=== PATIENT | female | born 1955 | race Caucasian/White ===

== ENCOUNTER 2019-10-07 16:45 | Emergency (ER) | payer BC, SELFPAY ==
[2019-10-07 16:49] VITALS: BP 144/82; PULSE 95; RESP 20; TEMP 36.3; O2SAT 97; BMI 28.1
--- NOTE | 2019-10-07 17:06 | ED_ITS ---
Entered by Giovanna Sethi, acting as scribe for Cedric Aguirre DO Oct 07, 2019 16:45 Documented by User: Yamel Rodriguez MD 10/07/19 19:42 HPI - General Adult General: Chief complaint: General Medical Stated complaint: multiple complaints Time Seen by Provider: 10/07/19 17:06 PFSH ED PFSH: Social History Smoking and tobacco status: former smoker Course Vital Signs: Vital signs: Vital Signs Temperature 97.4 F L 10/07/19 16:49 Pulse Rate 91 10/07/19 19:47 Respiratory Rate 14 10/07/19 19:47 Blood Pressure 122/74 10/07/19 19:47 Pulse Oximetry 97 10/07/19 19:47 MDM - General Adult MDM Narrative: Medical decision making narrative: Patient presents here with diarrhea after trip to [place]. CT scan and lab work here is all normal. We will start her on Augmentin as is been going on for 5 days. Will get stool cultures as well. She is stable for discharge and is to follow-up with her primary care doctor in 3 to 5 days return if worsening. Lab Data: Labs: Lab Results 10/07/19 10/07/19 10/07/19 Range/Units 17:40 17:45 17:45 WBC 11.9 H (4.0-10.0) 10^3/ uL RBC 4.78 (4.1-5.3) 10^6/u L Hgb 13.4 (11.5-15.3) g/dL Hct 41.4 (37.0-47.0) % MCV 86.6 (81-99) fL MCH 28.0 (28.0-34.0) pg MCHC 32.4 (30.0-36.0) g/dL RDW 12.2 (12.1-15.1) % Plt Count 343 (130-400) 10^3/c mm MPV 10.1 (7.4-10.4) fL Neut % (Auto) 73.9 % Lymph % (Auto) 15.7 % [place] % (Auto) 7.7 % Eos % (Auto) 1.9 % Baso % (Auto) 0.5 % Neut # (Auto) 8.8 H (1.8-7.7) 10^3/u L Lymph # (Auto) 1.9 (0.8-4.8) 10^3/u L [place] # (Auto) 0.9 (0.2-0.9) 10^3/u L Eos # (Auto) 0.2 (0.0-0.8) 10^3/u L Baso # (Auto) 0.1 (0.0-0.1) 10^3/u L Nucleated RBC % (a uto) 0 % Nucleated RBCs # 0.0 /100WBC Sodium 138 (136-145) mmol/L Potassium 3.5 (3.5-5.1) mmol/L Chloride 99 (98-107) mmol/L Carbon Dioxide 26 (22-29) mmol/L Anion Gap 16.5 (5-19) BUN 6 L (8-23) mg/dL Creatinine 0.7 (0.5-0.9) mg/dL GFR Calculation 84.8 L (90-130) mL/min Glucose 92 (65-115) mg/dL Calcium 8.9 (8.5-10.5) mg/dL Total Bilirubin 0.3 (0.15-1.2) mg/dL AST 23 (0-32) U/L ALT 21 (0-33) U/L Alkaline Phosphata se 110 H (35-105) IU/L Total Protein 7.1 (6.6-8.7) g/dL Albumin 4.2 (3.5-5.2) g/dL Globulin 2.9 (1.3-4.6) g/dL Lipase 26 (13-60) U/L Urine Color Yellow (Yellow) Urine Appearance Clear (CLEAR) Urine pH 7 (5-7) Ur Specific Gravit y 1.005 (1.005-1.030) Urine Protein Neg (Negative) Urine Glucose (UA) Norm (Normal) Urine Ketones Negative (Negative) Urine Occult Blood Neg (Negative) Urine Nitrate Negative (Negative) Urine Bilirubin Neg (NEGATIVE) Urine Urobilinogen Norm (Negative) mg/dL Ur Leukocyte Rosina ase Negative (Negative) Imaging Data^: CT Abd/Pel: Radiologist's impression: [address] [address] [address] Scan Report Signed Patient: Liliana Schuster Unit #: [id number] : 1955 Age/Sex: 64 / F ADM Date: 10/07/19 Loc: ER Room/Bed: Attending Dr: Ordering Provider/Ordering MD: Cedric Aguirre DO Date of Service: 10/07/19 Procedure(s): CT abdomen pelvis w con* [id number] Accession Number(s): [id number] Report Number: [id number] PROCEDURE INFORMATION: Exam: CT Abdomen And Pelvis With Contrast Exam date and time: 10/07/2019 5:53 PM Age: 64 years old Clinical indication: Nausea and other: Diarrhea; Abdominal pain; Localized; Left lower quadrant (llq); Prior surgery; Surgery type: Tubal; Additional info: Abd pain TECHNIQUE: Imaging protocol: Computed tomography of the abdomen and pelvis with intravenous contrast. Total DLP: 1014.43 mGy-cm Radiation optimization: All CT scans at this facility use at least one of these dose optimization techniques: automated exposure control; mA and/or kV adjustment per patient size (includes targeted exams where dose is matched to clinical indication); or iterative reconstruction. Contrast material: OMNI 300; Contrast volume: 95 ml; Contrast route: IV; COMPARISON: CT abdomen pelvis w con* [id number] 07/03/2018 10:11 PM FINDINGS: Lungs: Stable 4 mm right middle lobe nodule, unchanged from 07/03/2018; no further evaluation needed. Liver: No mass. Gallbladder and bile ducts: Unremarkable. No ductal dilation. Pancreas: Normal. No ductal dilation. Spleen: Normal. No splenomegaly. Adrenals: Normal. No mass. Kidneys and ureters: No calculus or hydronephrosis. Stable left renal pelvic cyst. Stomach and bowel: No acute findings. No obstruction. No mucosal thickening. No acute diverticulitis. Underdistention of the stomach, gastric wall thickening cannot be excluded. Appendix: No evidence of appendicitis. Intraperitoneal space: Unremarkable. No free air. No significant fluid collection. Vasculature: No abdominal aortic aneurysm. Lymph nodes: No significant adenopathy. Bladder: Unremarkable as visualized. Reproductive: Unremarkable as visualized. Bones/joints: No acute findings. Soft tissues: Unremarkable. CT/CT abdomen pelvis w con* [id number] IMPRESSION: No acute findings. Discharge Plan Discharge Patient Disposition: Home, Self-Care Condition: Stable Prescriptions: New dicyclomine 20 mg tablet 20 mg PO TID Qty: 30 RF: 0 Augmentin 875-125 mg tablet 1 tab PO BID Qty: 14 RF: 0 No Action losartan 50 mg tablet 50 mg PO QDAY Qty: 30 RF: 6 Discharge Orders: Discharge Order (Routine); Ordered 10/07/19 Ordered By: Yamel Rodriguez Referrals: Robbie Roberts MD [Primary Care Provider] - 4-7 days Discharge Diet: Advance as tolerated Discharge Activity: Resume usual activity Patient Instructions: Diarrhea - Adult Discharge Date/Time: 10/07/19 19:43 Coding Level of Care Code ED Boom Tender for Chg Fwd Exam Detailed Documented by User: Cedric Aguirre DO 10/08/19 13:50 HPI - General Adult General: Chief complaint: General Medical Stated complaint: multiple complaints Time Seen by Provider: 10/07/19 17:06 Source: patient and family Mode of arrival: ambulatory Limitations: no limitations History of Present Illness: HPI narrative: 64 yo female presents with LLQ pain. pt states this started Thursday when returning home from [place]. pt states movement makes this worse and laying flat makes this better. pt has had nausea. pt denies any other symptoms at this time. pt has a hx of diverticulitis. complaint: LLQ pain Onset (ago): day(s) (2 days ago) Location: abdomen Radiation: non-radiation Severity: moderate Quality: sharp Pain Consistency: constant Relieving factors: other (laying flat) Exacerbating factors: movement Associated symptoms: Reports no associated symptoms and nausea; Deny chest pain, dyspnea, malaise or rash Treatments prior to arrival: other (pt was sent to the ED from [facility]) Review of Systems General: Reports: 10 or more systems reviewed and unremarkable except in HPI and below Const: Denies: fever, chills, body aches, change in appetite, fatigue or mal aise ENMT: Denies: throat pain, ear pain, nasal discharge or nasal congestion Card: Denies: chest pain, edema, shortness of breath on exertion or shortness of breath when lying down Resp: Denies: shortness of breath, productive cough or non-productive cough GI: Reports: abdominal pain and nausea : Denies: flank pain, difficulty urinating, painful urination, urinary frequency or urinary urgency Skin/Breast: Denies: rash or itching PFSH ED PFSH: Social History Smoking and tobacco status: former smoker Physical Exam Const: COMMON NORMALS: no apparent distress GENERAL APPEARANCE: cooperative and comfortable ORIENTATION/CONSCIOUSNESS: Yes awake, Yes oriented to person, Yes oriented to place and Yes oriented to time HENMT: COMMON NORMALS: normocephalic, head/scalp atraumatic, hearing grossly normal bilaterally, external ears normal, EAC's normal, TM's normal bilaterally, nasal mucous membranes and turbinates normal, moist oral mucous membranes and oropharynx normal HEAD & SCALP: normocephalic and atraumatic NOSE: nasal mucous membranes and turbinates normal EXTERNAL EAR: Yes external ears normal EXTERNAL AUDITORY CANAL: EAC's normal TYMPANIC MEMBRANE: TM's normal bilaterally Eye: COMMON NORMALS: PERRL, EOMs intact bilaterally, conjunctivae normal and no scleral icterus CONJUNCTIVA: Yes conjunctivae normal PUPIL: Yes PERRL Neck/C-Spine: COMMON NORMALS: full ROM, no lymphadenopathy, supple and no JVD Lymph: LYMPHATIC: no lymphadenopathy noted and no lymphedema noted Resp: COMMON NORMALS: normal respiratory effort, no retractions, no use of accessory muscles and clear to auscultation bilaterally AUSCULTATION: clear to auscultation bilaterally Cardio: COMMON NORMALS: no JVD, regular rate, regular rhythm and no murmurs RATE: regular rate RHYTHM: regular rhythm Extremity: COMMON NORMALS: normal to inspection, normal capillary refill, no clubbing, cyanosis or edema, no calf tenderness and no pedal edema Neuro: SENSORIUM/ORIENTATION: Yes oriented to person, Yes oriented to place and Yes oriented to time Skin: COMMON NORMALS: no rashes or lesions noted GENERAL SKIN EXAM: no rashes or lesions noted Course ED course: Care turned over to Dr. Rodriguez at change of shift CT pending Vital Signs: Vital signs: Vital Signs Temperature 97.4 F L 10/07/19 16:49 Pulse Rate 91 10/07/19 19:47 Respiratory Rate 14 10/07/19 19:47 Blood Pressure 122/74 10/07/19 19:47 Pulse Oximetry 97 10/07/19 19:47 [facility] - General Adult Lab Data: Labs: Lab Results 10/07/19 10/07/19 10/07/19 Range/Units 17:40 17:45 17:45 WBC 11.9 H (4.0-10.0) 10^3/ uL RBC 4.78 (4.1-5.3) 10^6/u L Hgb 13.4 (11.5-15.3) g/dL Hct 41.4 (37.0-47.0) % MCV 86.6 (81-99) fL MCH 28.0 (28.0-34.0) pg MCHC 32.4 (30.0-36.0) g/dL RDW 12.2 (12.1-15.1) % Plt Count 343 (130-400) 10^3/c mm MPV 10.1 (7.4-10.4) fL Neut % (Auto) 73.9 % Lymph % (Auto) 15.7 % [place] % (Auto) 7.7 % Eos % (Auto) 1.9 % Baso % (Auto) 0.5 % Neut # (Auto) 8.8 H (1.8-7.7) 10^3/u L Lymph # (Auto) 1.9 (0.8-4.8) 10^3/u L [place] # (Auto) 0.9 (0.2-0.9) 10^3/u L Eos # (Auto) 0.2 (0.0-0.8) 10^3/u L Baso # (Auto) 0.1 (0.0-0.1) 10^3/u L Nucleated RBC % (a uto) 0 % Nucleated RBCs # 0.0 /100WBC Sodium 138 (136-145) mmol/L Potassium 3.5 (3.5-5.1) mmol/L Chloride 99 (98-107) mmol/L Carbon Dioxide 26 (22-29) mmol/L Anion Gap 16.5 (5-19) BUN 6 L (8-23) mg/dL Creatinine 0.7 (0.5-0.9) mg/dL GFR Calculation 84.8 L (90-130) mL/min Glucose 92 (65-115) mg/dL Calcium 8.9 (8.5-10.5) mg/dL Total Bilirubin 0.3 (0.15-1.2) mg/dL AST 23 (0-32) U/L ALT 21 (0-33) U/L Alkaline Phosphata se 110 H (35-105) IU/L Total Protein 7.1 (6.6-8.7) g/dL Albumin 4.2 (3.5-5.2) g/dL Globulin 2.9 (1.3-4.6) g/dL Lipase 26 (13-60) U/L Urine Color Yellow (Yellow) Urine Appearance Clear (CLEAR) Urine pH 7 (5-7) Ur Specific Gravit y 1.005 (1.005-1.030) Urine Protein Neg (Negative) Urine Glucose (UA) Norm (Normal) Urine Ketones Negative (Negative) Urine Occult Blood Neg (Negative) Urine Nitrate Negative (Negative) Urine Bilirubin Neg (NEGATIVE) Urine Urobilinogen Norm (Negative) mg/dL Ur Leukocyte Rosina ase Negative (Negative) Discharge Plan Discharge Patient Disposition: Home, Self-Care Condition: Stable Prescriptions: New dicyclomine 20 mg tablet 20 mg PO TID Qty: 30 RF: 0 Augmentin 875-125 mg tablet 1 tab PO BID Qty: 14 RF: 0 No Action losartan 50 mg tablet 50 mg PO QDAY Qty: 30 RF: 6 Discharge Orders: Discharge Order (Routine); Ordered 10/07/19 Ordered By: Yamel Rodriguez Referrals: Robbie Roberts MD [Primary Care Provider] - 4-7 days Discharge Diet: Advance as tolerated Discharge Activity: Resume usual activity Patient Instructions: Diarrhea - Adult Discharge Date/Time: 10/07/19 19:43 Coding Level of Care Code ED Boom Tender for Chg Fwd Exam Detailed The documentation recorded by the Navdeep cohen Bridget Annette, accurately reflects the service I personally performed and the decisions made by Timothy nicholson Curtis L, DO Oct 07, 2019 16:45
--- NOTE | 2019-10-07 17:32 | CTR_ITS ---
PROCEDURE INFORMATION: Exam: CT Abdomen And Pelvis With Contrast Exam date and time: 10/07/2019 5:53 PM Age: 64 years old Clinical indication: Nausea and other: Diarrhea; Abdominal pain; Localized; Left lower quadrant (llq); Prior surgery; Surgery type: Tubal; Additional info: Abd pain TECHNIQUE: Imaging protocol: Computed tomography of the abdomen and pelvis with intravenous contrast. Total DLP: 1014.43 mGy-cm Radiation optimization: All CT scans at this facility use at least one of these dose optimization techniques: automated exposure control; mA and/or kV adjustment per patient size (includes targeted exams where dose is matched to clinical indication); or iterative reconstruction. Contrast material: OMNI 300; Contrast volume: 95 ml; Contrast route: IV; COMPARISON: CT abdomen pelvis w con* [id number] 07/03/2018 10:11 PM FINDINGS: Lungs: Stable 4 mm right middle lobe nodule, unchanged from 07/03/2018; no further evaluation needed. Liver: No mass. Gallbladder and bile ducts: Unremarkable. No ductal dilation. Pancreas: Normal. No ductal dilation. Spleen: Normal. No splenomegaly. Adrenals: Normal. No mass. Kidneys and ureters: No calculus or hydronephrosis. Stable left renal pelvic cyst. Stomach and bowel: No acute findings. No obstruction. No mucosal thickening. No acute diverticulitis. Underdistention of the stomach, gastric wall thickening cannot be excluded. Appendix: No evidence of appendicitis. Intraperitoneal space: Unremarkable. No free air. No significant fluid collection. Vasculature: No abdominal aortic aneurysm. Lymph nodes: No significant adenopathy. Bladder: Unremarkable as visualized. Reproductive: Unremarkable as visualized. Bones/joints: No acute findings. Soft tissues: Unremarkable. CT/CT abdomen pelvis w con* [id number] IMPRESSION: No acute findings. Radiation Dose CTDIVOL = (mGy): DLP = 1014.43 (mGy-cm)
[2019-10-07] MEDS: ondansetron 2 mg/ML SDV 2 mL 4 MG IVP (17:51)
[2019-10-07] MEDS: sodium chloride 0.9% 1,000 ML 999 ML IV (17:52)
[2019-10-07] MEDS: iohexol 300 mg/mL 100 mL Btl 95 ML IV (18:00)
[2019-10-07 18:02] LABS: Basophils # 0.1 10^3/uL (0.0-0.1); Basophils % 0.5 %; Eosinophils # 0.2 10^3/uL (0.0-0.8); Eosinophils % 1.9 %; Hematocrit 41.4 % (37.0-47.0); Hemoglobin 13.4 g/dL (11.5-15.3); Lymphocytes # 1.9 10^3/uL (0.8-4.8); Lymphocytes % 15.7 %; Mean Corpuscular HGB Conc 32.4 g/dL (30.0-36.0); Mean Corpuscular Volume 86.6 fL (81-99); Mean Platelet Volume 10.1 fL (7.4-10.4); Monocytes # 0.9 10^3/uL (0.2-0.9); Monocytes % 7.7 %; Neutrophils # 8.8 10^3/uL (1.8-7.7); Neutrophils % 73.9 %; Nucleated Red Blood Cells % 0 %; Platelet Count 343 10^3/cmm (130-400); Red Blood Count 4.78 10^6/uL (4.1-5.3); Red Cell Distribution Width 12.2 % (12.1-15.1); White Blood Count 11.9 10^3/uL (4.0-10.0)
[2019-10-07 18:10] LABS: Add Urine Microscopic? NO
[2019-10-07 18:12] LABS: Alanine Aminotransferase 21 U/L (0-33); Albumin Level 4.2 g/dL (3.5-5.2); Alkaline Phosphatase 110 IU/L (35-105); Anion Gap 16.5 (5-19); Aspartate Amino Transferase 23 U/L (0-32); Blood Urea Nitrogen 6 mg/dL (8-23); Calcium 8.9 mg/dL (8.5-10.5); Carbon Dioxide 26 mmol/L (22-29); Chloride 99 mmol/L (98-107); Globulin 2.9 g/dL (1.3-4.6); Glomerular Filtration Rate 84.8 mL/min (90-130); Glucose 92 mg/dL (65-115); Lipase 26 U/L (13-60); Potassium 3.5 mmol/L (3.5-5.1); Sodium 138 mmol/L (136-145); Total Bilirubin 0.3 mg/dL (0.15-1.2); Total Protein 7.1 g/dL (6.6-8.7)
--- NOTE | 2019-10-07 18:14 | PC.NURSE ---
Nausea improved following Zofran. Denies any needs
[2019-10-07 18:16] LABS: Bilirubin Urine Neg (NEGATIVE); Blood Urine Neg (Negative); Glucose Urine UA Norm (Normal); Ketones Urine Negative (Negative); Leukocyte Esterase Urine Negative (Negative); Nitrate Urine Negative (Negative); Protein Urine Neg (Negative); Specific Gravity, Urine 1.005 (1.005-1.030); Urine Appearance Clear (CLEAR); Urine Color Yellow (Yellow); Urobilinogen Urine Norm (Negative); pH Urine 7 (5-7)
[2019-10-07 19:47] VITALS: BP 122/74; PULSE 91; RESP 14; O2SAT 97
== END 2019-10-07 19:43 | disposition home or self-care (01) ==
PROVIDERS: Family Medicine; Emergency Provider Emergency Medicine; Family Provider Internal Medicine; PCP Internal Medicine
DX: R10.32 Left lower quadrant pain (principal); R11.0 Nausea; Z87.19 Personal history of other diseases of the digestive system; Z87.891 Personal history of nicotine dependence
CPT/HCPCS: 36415; 74177; 80053; 81003; 83690; 85025; 87505; 96361; 96374; 96375; 99282; 99283; J2405; J7030; Q9967

== ENCOUNTER → 2020-04-25 13:10 | Outpatient (BNVA) | payer BC, SELFPAY | PROVIDERS: Family Provider Internal Medicine; PCP Internal Medicine; Visit Provider Obstetrics & Gynecology | DX: R30.0 Dysuria (principal); R30.9 Painful micturition, unspecified | CPT/HCPCS: 80053 ==

== ENCOUNTER 2020-05-22 08:38 | Outpatient (CLI) | payer BC, SELFPAY ==
--- NOTE | 2020-05-22 09:00 | MM_ITS ---
WS: [id number] BILATERAL DIGITAL SCREENING MAMMOGRAM WITH CAD CLINICAL INFORMATION: Breast cancer Screening HISTORY: Screening mammogram. No current complaints. COMPARISON: TECHNIQUE: Bilateral CC and MLO. FINDINGS: The breast are composed of extremely dense tissue, which can limit the detection of small underlying mass lesions. No suspicious focal mass, asymmetry, calcifications, or architectural distortion. No ev idence of malignancy. A few punctate calcifications. MM/[place] [id number] IMPRESSION: BI-RADS: 2-Benign FOLLOW UP: 1 Year Follow-up Recommend return to annual screening mammography.
== END 2020-05-22 08:39 | disposition home or self-care (01) ==
PROVIDERS: PCP Internal Medicine; Visit Provider Obstetrics & Gynecology
DX: Z12.31 Encounter for screening mammogram for malignant neoplasm of breast (principal)
CPT/HCPCS: 77067

== ENCOUNTER 2021-07-04 07:41 | Outpatient (CLI) | payer OTHER, SELFPAY ==
--- NOTE | 2021-07-04 08:00 | MM_ITS ---
WS: [id number] BILATERAL DIGITAL SCREENING MAMMOGRAPHY WITH CAD CLINICAL INFORMATION: Z12.39 - Encounter for other screening for malignant neop... HISTORY: Screening mammogram. No current complaints. COMPARISON: May 22, 2020 TECHNIQUE: Bilateral CC and MLO views. FINDINGS: The breasts are composed of heterogeneous fibroglandular density tissue, which can limit the detectio n of small underlying mass lesions. Punctate calcifications right breast. Increasing dense breast tis froilan upper outer left breast. This is more prominent compared to the prior examinations. Recommend fur ther evaluation with left diagnostic mammography and ultrasound. Right breast is unremarkable and unchanged. MM/[place] [id number] IMPRESSION: BI-RADS: 0-Incomplete: Need additional imaging evaluation FOLLOW UP: Need Additional Imaging Recommend left breast diagnostic mammography and ultrasound.
== END 2021-07-04 07:42 | disposition home or self-care (01) ==
LOC: RADSHAW 07:45
PROVIDERS: PCP Internal Medicine; Visit Provider Obstetrics & Gynecology
DX: Z12.39 Encounter for other screening for malignant neoplasm of breast (principal)
CPT/HCPCS: 77067

== ENCOUNTER 2021-07-10 07:41 | Outpatient (CLI) | payer OTHER, SELFPAY ==
--- NOTE | 2021-07-10 07:44 | US_ITS ---
WS: [id number] LEFT DIGITAL MAMMOGRAPHY WITH CAD CLINICAL INFORMATION: R92.2 - Inconclusive mammogram COMPARISON: July 04, 2021 TECHNIQUE: 3 views of the left breast were obtained. FINDINGS: The left breast is composed of heterogeneous fibroglandular density tissue, which can limit the detec tion of small underlying mass lesions. Stable dense breast tissue upper outer left breast. This persi sts on spot compression views. Ultrasound is pending. ULTRASOUND BREAST LEFT TECHNIQUE: Ultrasound left breast focused area of concern. CLINICAL INFORMATION: R92.2 - Inconclusive mammogram COMPARISON: None. FINDINGS: Ultrasound left breast. Underlying dense parenchyma tissue. At the 2:00 position 3 cm from the nipple is an ovoid 8 x 6 x 4 mm solid hypoechoic lesion. This is nonspecific and recommend further evaluati on with ultrasound-guided biopsy. Additional hypoechoic complex cyst at the 2:00 position measuring 3 x 3 x 3 mm. US/US breast LT limited* [id number] IMPRESSION: BI-RADS: 4-Suspicious Finding-Biopsy Should Be Considered FOLLOW UP: US Guided Biopsy Recommended Recommend ultrasound-guided biopsy left breast lesion
--- NOTE | 2021-07-10 08:00 | MM_ITS ---
WS: [id number] LEFT DIGITAL MAMMOGRAPHY WITH CAD CLINICAL INFORMATION: R92.2 - Inconclusive mammogram COMPARISON: July 04, 2021 TECHNIQUE: 3 views of the left breast were obtained. FINDINGS: The left breast is composed of heterogeneous fibroglandular density tissue, which can limit the detec tion of small underlying mass lesions. Stable dense breast tissue upper outer left breast. This persi sts on spot compression views. Ultrasound is pending. ULTRASOUND BREAST LEFT TECHNIQUE: Ultrasound left breast focused area of concern. CLINICAL INFORMATION: R92.2 - Inconclusive mammogram COMPARISON: None. FINDINGS: Ultrasound left breast. Underlying dense parenchyma tissue. At the 2:00 position 3 cm from the nipple is an ovoid 8 x 6 x 4 mm solid hypoechoic lesion. This is nonspecific and recommend further evaluati on with ultrasound-guided biopsy. Additional hypoechoic complex cyst at the 2:00 position measuring 3 x 3 x 3 mm. MM/[place] [id number] IMPRESSION: BI-RADS: 4-Suspicious Finding-Biopsy Should Be Considered FOLLOW UP: US Guided Biopsy Recommended Recommend ultrasound-guided biopsy left breast lesion
== END 2021-07-10 07:42 | disposition home or self-care (01) ==
LOC: RADSHAW 07:42
PROVIDERS: PCP Internal Medicine; Visit Provider Obstetrics & Gynecology
DX: R92.2 Inconclusive mammogram (principal); N63.11 Unspecified lump in the right breast, upper outer quadrant
CPT/HCPCS: 76642; 77065

== ENCOUNTER → 2021-10-30 09:40 | Outpatient (BNVA) | payer OTHER, SELFPAY | PROVIDERS: PCP Internal Medicine; Visit Provider Nurse Practitioner Family | DX: Z20.828 Contact with and (suspected) exposure to other viral communicable diseases (principal); Z20.822 Contact with and (suspected) exposure to COVID-19 | CPT/HCPCS: 87631; 87635 ==

== ENCOUNTER 2022-01-31 07:19 | Outpatient (CLI) | payer OTHER, SELFPAY ==
--- NOTE | 2022-01-31 07:28 | US_ITS ---
WS: [email or web address] Exam: US breast LT limited* [id number] Date/Time of Exam: 01/31/2022 8:19 AM Reason For Exam: R92.2 - Inconclusive mammogram Regional ultrasound the left breast was performed from the 12 to 3:00 position. The previously questi oned nodule at the 2:00 position is not identified on today's study. There were no suspicious nodules or masses noted in this region. There were no cysts identified. Recommendations: Continue yearly screening mammography. US/US breast LT limited* [id number] IMPRESSION: 1. No suspicious ultrasound finding from the 12:00 to the 3:00 position in the left breast. BI-RADS Category 2.
--- NOTE | 2022-01-31 07:28 | MM_ITS ---
WS: [id number] VIEWS: MLO, CC, and ML views left breast only. 3D digital tomosynthesis is also included in this ex am. Comparison made with prior exam of 07/31/2017, 11/15/2018 90 [id number] 07/04/2021. Findings: There was no sign of mass, architectural distortion or suspicious calcification in either breast. Sta ble appearing fibroglandular densities noted. Heterogeneously dense breasts. Regional ultrasound of the left breast is recommended for further workup. MM/[place] [id number] Impression: BI-RADS: 0-Incomplete: Need additional imaging evaluation FOLLOW-UP: See Report This mammogram was also analyzed by the Computer Aided Detection System R2 Imag e Director Erp.
== END 2022-01-31 07:20 | disposition home or self-care (01) ==
LOC: RADSHAW 07:23
PROVIDERS: PCP Internal Medicine; Visit Provider Obstetrics & Gynecology
DX: R92.2 Inconclusive mammogram (principal)
CPT/HCPCS: 76642; 77061

== ENCOUNTER → 2022-04-13 11:24 | Outpatient (BNVA) | payer OTHER, SELFPAY | PROVIDERS: PCP Internal Medicine; Visit Provider Registered Nurse Neonatal Intensive Care | DX: N39.0 Urinary tract infection, site not specified (principal) | CPT/HCPCS: 81000 ==

== ENCOUNTER 2022-06-25 10:13 | Outpatient (CLI) | payer MEDICARE, SELFPAY | END 2022-06-25 10:14 | disposition home or self-care (01) | LOC: LAB 10:18 | PROVIDERS: PCP Internal Medicine; Visit Provider Internal Medicine | DX: I10 Essential (primary) hypertension (principal) | CPT/HCPCS: 80053; 80061; 84443; 85025 ==

== ENCOUNTER → 2022-10-30 09:58 | Outpatient (BNVA) | payer MEDICARE, SELFPAY | PROVIDERS: PCP Internal Medicine; Referring Provider Internal Medicine; Visit Provider Dermatology | DX: L57.0 Actinic keratosis (principal); D36.13 Benign neoplasm of peripheral nerves and autonomic nervous system of lower limb, including hip | CPT/HCPCS: 88305 ==

== ENCOUNTER 2023-02-11 14:44 | Outpatient (CLI) | payer MEDICARE, SELFPAY ==
--- NOTE | 2023-02-11 14:55 | MM_ITS ---
WS: [id number] BILATERAL 3D TOMOSYNTHESIS DIGITAL SCREENING MAMMOGRAPHY WITH CAD CLINICAL INFORMATION: SCREENING HISTORY: Screening mammogram. No current complaints. COMPARISON: January 31, 2022 TECHNIQUE: Bilateral CC and MLO views. FINDINGS: The breasts are composed of heterogeneous fibroglandular density tissue, which can limit the detectio n of small underlying mass lesions. No suspicious mass, asymmetry, calcifications, or architectural d istortion. No evidence of malignancy. A few incidental punctate calcifications. MM/[place] [id number] IMPRESSION: BI-RADS: 2-Benign FOLLOW UP: 1 Year Follow-up Recommend return to annual screening mammography.
== END 2023-02-11 14:45 | disposition home or self-care (01) ==
PROVIDERS: PCP Internal Medicine; Visit Provider Obstetrics & Gynecology
DX: Z12.31 Encounter for screening mammogram for malignant neoplasm of breast (principal)
CPT/HCPCS: 77063; 77067

== ENCOUNTER 2023-02-12 21:15 | Emergency (ER) | payer MEDICARE, SELFPAY ==
--- NOTE | 2023-02-12 21:17 | XRR_ITS ---
PROCEDURE INFORMATION: Exam: XR Right Ankle Exam date and time: 02/12/2023 8:31 PM Age: 67 years old Clinical indication: Injury or trauma; Fall; Additional info: Injury, fall TECHNIQUE: Imaging protocol: Radiologic exam of the right ankle. Views: 3 or more views. COMPARISON: No relevant prior studies available. FINDINGS: Bones/joints: No acute fracture. No dislocation. Normal bone mineralization. No joint effusion. Joint spaces are maintained. Accessory ossicle adjacent to the cuboid bone. Soft tissues: Mild soft tissue swelling anterior and lateral to the right ankle. No radiopaque foreign body. XR/XR ankle RT min 3V* [id number] IMPRESSION: 1. No acute fracture of the right ankle. Followup imaging recommended in 7-14 days if clinical concern for fracture persists. 2. Mild soft tissue swelling anterior and lateral to the right ankle. 3. Incidental/nonacute findings are listed in the report.
[2023-02-12 21:26] VITALS: PULSE 115; RESP 20; TEMP 36.6; O2SAT 99; BMI 26.4
--- NOTE | 2023-02-12 21:37 | ED_ITS ---
HPI - Extremity Problem General: Chief complaint: Extremity Injury, Lower Stated complaint: fall/right ankel injury Time Seen by Provider: 02/12/23 21:31 History of Present Illness: 67-year-old female comes in today with injury to the right ankle. Patient reports that she was coming down off the steps and missed stepped causing her to fall off to the side proximately 6 to 8 inches. Patient injured her left ankle in which she felt a pop in it. Patient has some lateral swelling noted to it. At first patient did not comment on any problems with her left foot but after x- rays were done patient made complaints about pain to her left fifth and wanted to x-ray done on her left foot also. Review of Systems General: Reports: 10 or more systems reviewed and unremarkable except in HPI and below Musc: Reports: extremity pain and extremity swelling [facility] ED PFSH: Medical History Essential (primary) hypertension GERD (gastroesophageal reflux disease) History of sigmoidoscopy 2008 IBS (irritable bowel syndrome) Macular degeneration Metabolic syndrome Well woman exam with routine gynecological exam Surgical History History of colonoscopy 12/13/2014 History of endometrial ablation History of esophagogastroduodenoscopy (EGD) 06/08/2017 History of tubal ligation Family History Son Thyroid condition Family/Other Breast cancer maternal aunt and paternal aunt both in 70's Grandfather Diabetes maternal Grandmother Diabetes maternal and paternal Heart disease paternal Father Heart disease Hypertension Denies family history of Hyperlipidemia Anesthesia complication Stroke Social History Smoking and tobacco status: never smoked Quit status (tobacco): has quit using tobacco Year quit tobacco: 1986 Alcohol intake: current Alcohol intake frequency: holidays/special occasions only Alcohol type: wine Substance/Drug Use: never Physical Exam Const: COMMON NORMALS: alert HENMT: COMMON NORMALS: atraumatic HEAD & SCALP: atraumatic Neck/C-Spine: COMMON NORMALS: full ROM Resp: COMMON NORMALS: normal respiratory effort Back/Pelvis: COMMON NORMALS: thoracic and lumbar spine normal to inspection Extremity: RIGHT LOWER EXTREMITY: Yes foot & digits (Lateral swelling) LEFT LOWER EXTREMITY: Yes foot & digits (Dorsal tenderness no deformity or swelling) Neuro: SENSORIUM/ORIENTATION: Yes alert Skin: COMMON NORMALS: turgor normal GENERAL SKIN EXAM: turgor normal Course Vital Signs: Vital signs: Vital Signs Temperature 98 F 02/12/23 21:26 Pulse Rate 115 H 02/12/23 21:26 Respiratory Rate 20 H 02/12/23 21:26 Pulse Oximetry 99 02/12/23 21:26 MDM - Extremity (Nontraumatic) Medical Decision Making 67-year-old female comes in today for complaints of injury to the right ankle a nd left foot. On exam patient has some lateral posterior swelling to the right ankle. Pulses are intact to the extremity. Prompt capillary refill is noted. Examination of the left foot noted no obvious abnormalities. Vital signs were normal. Differential diagnosis includes but not limited to fracture, sprain, contusion. X-ray of the right ankle showed no fracture. X-ray of the left foot also indicated no fracture. Reviewed exam with patient recommended elastic bandage and crutches for support. Patient reported understanding and agreed to plan. Lab Data Radiology Impressions Ankle X-Ray 02/12/23 21:17 IMPRESSION: 1. No acute fracture of the right ankle. Followup imaging recommended in 7-14 days if clinical concern for fracture persists. 2. Mild soft tissue swelling anterior and lateral to the right ankle. 3. Incidental/nonacute findings are listed in the report. Foot X-Ray 02/12/23 21:48 IMPRESSION: 1. No acute fracture of the left foot. Followup imaging recommended in 7-14 days if clinical concern for fracture persists. 2. Incidental/nonacute findings are listed in the report. Discharge Plan Discharge Patient Disposition: Home Clinical Impression: Ankle sprain and strain, Contusion of ankle or foot, left Fall Qualifiers: Encounter type: initial encounter Qualified Code(s): W19.XXXA - Unspecified fall, initial encounter Condition: Stable Prescriptions: New hydrocodone-acetaminophen 5-325 mg tablet 1 tab PO Q8H PRN (Reason: pain (scale score 7-10)) Qty: 6 0RF No Action loratadine [Claritin] 10 mg tablet 10 mg PO DAILY PRN dicyclomine 20 mg tablet 20 mg PO TID PRN cholecalciferol (vitamin D3) 25 mcg (1,000 unit) capsule 25 mcg PO DAILY vit C,E,Zn,Lq-[id number]-zeax 250-2.5-0.5 mg capsule PO BID fluticasone propionate 50 mcg/actuation spray,suspension See Rx Instructions .ROUTE .COMPLEX PRN Dose Instruction: USE 2 SPRAYS IN EACH NOSTRIL ONCE DAILY Rx Instructions: USE 2 SPRAYS IN EACH NOSTRIL ONCE DAILY PRN; ipratropium bromide 42 mcg (0.06 %) spray,non-aerosol 2 spray intranasal TID PRN Rx Instructions: administer into each nostril pseudoephedrine HCl 30 mg tablet 30 mg PO Q6H PRN aloe vera Capsule PO DAILY biotin 1 mg capsule 1 mg PO DAILY areds persivison capsule PO eletriptan [Relpax] 20 mg tablet 20 mg PO Q2H PRN (Reason: migraine headache) Qty: 9 1RF Rx Instructions: do not exceed 4 doses per 24 hrs losartan 50 mg tablet 50 mg PO QDAY Qty: 90 6RF duloxetine 60 mg capsule,delayed release(DR/EC) 60 mg PO DAILY Dexilant 60 mg capsule,biphase delayed releas 60 mg PO DAILY Qty: 90 3RF montelukast [Singulair] 10 mg tablet 10 mg PO DAILY Qty: 90 3RF albuterol sulfate 90 mcg/actuation HFA aerosol inhaler 2 puff inhalation QID PRN (Reason: shortness of breath or wheezing) Qty: 8.5 0RF Amitiza 8 mcg capsule 8 mcg PO BID Qty: 180 3RF celecoxib [Celebrex] 200 mg capsule 200 mg PO BID PRN (Reason: pain) Qty: 60 3RF estradiol 0.5 mg tablet See Rx Instructions .ROUTE .COMPLEX Qty: 90 3RF Dose Instruction: Take 1 tablet by mouth once daily Rx Instructions: Take 1 tablet by mouth once daily medroxyprogesterone 2.5 mg tablet See Rx Instructions .ROUTE .COMPLEX Qty: 90 3RF Dose Instruction: Take 1 tablet by mouth once daily Rx Instructions: Take 1 tablet by mouth once daily ketoconazole 2 % shampoo 1 applic topical .2x weekly Qty: 120 6RF Rx Instructions: Lather into scalp 2-3 times weekly. Allow to sit on scalp for 5 minutes before rinsing. triamcinolone acetonide 0.1 % ointment 1 applic topical BID Qty: 80 0RF Rx Instructions: Apply to affected area no more than 2 weeks per month. Not for face acyclovir 400 mg tablet 400 mg PO TID PRN (Reason: Genital Herpes) 10 Days Qty: 30 2RF Discharge Orders: Discharge ED (Routine); Ordered 02/12/23 Ordered By: Johann Hobbs Referrals: Robbie Roberts MD [Primary Care Provider] - Discharge Diet: Usual diet Discharge Activity: Increase activity as tolerated Patient Instructions: Ankle Sprain (ED), Opioid Safety Activity Restrictions/Additional Instructions: Wear elastic bandage for comfort and support. Use crutches until you can bear weight comfortably. Use acetaminophen and ibuprofen to control pain. Use hydrocodone for severe pain. Most people after 3 days of nonweightbearing are able to start bearing weight. If no improvement is noted after 5 to 7 days, we would recommend repeat x-ray. Follow-up with primary care as needed. Return to emergency department for new concerns. Coding Level of Care Code ED Retort Furnace Operator for Licha Saldana
--- NOTE | 2023-02-12 21:48 | XRR_ITS ---
PROCEDURE INFORMATION: Exam: XR Left Foot Exam date and time: 02/12/2023 8:56 PM Age: 67 years old Clinical indication: Pain; Foot; Left; Additional info: Foot injury TECHNIQUE: Imaging protocol: Radiologic exam of the left foot. Views: 3 or more views. COMPARISON: No relevant prior studies available. FINDINGS: Bones/joints: TheNo acute fracture. No dislocation. Normal bone mineralization. No joint effusion. Joint spaces are maintained. Accessory ossicle adjacent to the cuboid bone. Soft tissues: No soft tissue swelling. No radiopaque foreign body. No soft tissue swelling. No radiopaque foreign body. Soft tissue calcifications adjacent to the heads of the 2nd and 1st metatarsals that may represent sequela of remote trauma. XR/XR foot LT min 3V* [id number] IMPRESSION: 1. No acute fracture of the left foot. Followup imaging recommended in 7-14 days if clinical concern for fracture persists. 2. Incidental/nonacute findings are listed in the report.
[2023-02-12] MEDS: HYDROcodone-acetaminophen 7.5-325 mg Tablet 1 TAB PO (21:56)
== END 2023-02-12 22:46 | disposition home or self-care (01) ==
PROVIDERS: Emergency Provider Nurse Practitioner Family; PCP Internal Medicine
DX: S93.401A Sprain of unspecified ligament of right ankle, initial encounter (principal); S96.911A Strain of unspecified muscle and tendon at ankle and foot level, right foot, initial encounter; S90.32XA Contusion of left foot, initial encounter; Z87.891 Personal history of nicotine dependence; I10 Essential (primary) hypertension; H35.30 Unspecified macular degeneration; W10.8XXA Fall (on) (from) other stairs and steps, initial encounter
CPT/HCPCS: 73610; 73630; 99283; E0114

== ENCOUNTER 2023-06-02 15:40 | Outpatient (CLI) | payer MEDICARE, SELFPAY ==
--- NOTE | 2023-06-02 | MR_ITS ---
WS: [id number] MRI HEAD WITHOUT CONTRAST TECHNIQUE: Sagittal T1, T2 axial, T2 axial FLAIR, axial and coronal T1 images, axial susceptibility w eighted imaging, axial diffusion weighted images, and coronal T2 images were obtained. CLINICAL INFORMATION: POLYNEUROPATHY COMPARISON: None. FINDINGS: No evidence of restricted diffusion to suggest acute ischemia. Ventricular system and basilar cistern s are patent. No suspicious intracranial signal normalities. Mild parenchymal volume loss. Normal pos terior fossa. Normal vascular flow voids at the skull base. No extra-axial fluid collections. No evid ence of mass or mass effect. LEFT sphenoid sinusitis with opacification of the LEFT sphenoid sinus ostia. No hemosiderin on the chavez sceptibility weighted images. Normal optic chiasm and pituitary infundibulum. Mild symmetric atrophy temporal lobes and hippocampal formations. IMPRESSION: 1. No evidence of restricted diffusion to suggest acute ischemia. 2. No suspicious intracranial signal abnormalities. Mild parenchymal volume loss. 3. LEFT maxillary sinusitis. 4. No hemosiderin on the susceptibility weighted images. 5. Mild symmetric atrophy temporal lobes and hippocampal formations.
== END 2023-06-02 15:41 | disposition home or self-care (01) ==
LOC: RAD 15:40
PROVIDERS: PCP Internal Medicine; Visit Provider Internal Medicine
DX: G62.89 Other specified polyneuropathies (principal); J32.0 Chronic maxillary sinusitis
CPT/HCPCS: 70551

== ENCOUNTER 2023-06-03 10:58 | Outpatient (CLI) | payer MEDICARE, SELFPAY ==
--- NOTE | 2023-06-03 11:25 | XRR_ITS ---
PROCEDURE INFORMATION: Exam: XR Chest Exam date and time: 06/03/2023 11:43 AM Age: 68 years old Clinical indication: Cough; Additional info: Acute cough TECHNIQUE: Imaging protocol: Radiologic exam of the chest. 2image(s) are provided. Views: 2 views. COMPARISON: CR XR chest 2V* [id number] 08/06/2017 11:54 AM COMPARISON MORE: CT abdomen pelvis w con* [id number] 10/07/2019 6:12 PM FINDINGS: Lungs: No lobar consolidation is appreciated. There is minimal subsegmental atelectasis versus post inflammatory scarring demonstrated. Pleural spaces: No pneumothorax or pleural effusion is appreciated. Heart/Mediastinum: The cardiomediastinal silhouette is within normal. No cardiac decompensation is appreciated. Diaphragm: There is slight asymmetric right hemidiaphragm elevation. Bones/joints: Osseous alignment is maintained.No interval displaced fracture or dislocation is appreciated. Soft tissues: No radiopaque foreign body or subcutaneous emphysema is appreciated. Other findings: No significant interval changes are appreciated. XR/XR chest 2V* [id number] IMPRESSION: No lobar consolidation is appreciated.No interval acute cardiopulmonary changes are appreciated.
== END 2023-06-03 10:59 | disposition home or self-care (01) ==
PROVIDERS: PCP Internal Medicine; Visit Provider Otolaryngology
DX: J20.9 Acute bronchitis, unspecified (principal)
CPT/HCPCS: 71046

== ENCOUNTER → 2023-07-29 13:28 | Outpatient (BNVA) | payer MEDICARE, SELFPAY | PROVIDERS: PCP Internal Medicine; Visit Provider Psychiatry & Neurology Neurology | DX: G95.9 Disease of spinal cord, unspecified (principal); R29.2 Abnormal reflex; R68.89 Other general symptoms and signs; G62.9 Polyneuropathy, unspecified | CPT/HCPCS: 99203 ==

== ENCOUNTER 2023-08-05 12:32 | Outpatient (CLI) | payer MEDICARE, SELFPAY ==
--- NOTE | 2023-08-05 13:00 | MR_ITS ---
WS: [id number] MRI CERVICAL SPINE with and without contrast. HISTORY: G95.9 - Disease of spinal cord, unspecified COMPARISON: None available. Technique: Multiplanar, multisequence noncontrast imaging of the cervical spine. Postcontrast images, MultiHance 12 mL IV. Normal alignment. Small disc and osteophyte complexes encroach upon the ventral thecal sac at see 3 4 , C4-5, C5-6 and C6-7. Signal in the cord is normal. Craniocervical junction, C1 and C2 relationship, odontoid process and soft tissues are normal. C2-C3: Normal. C3-C4: Mild osteophytic ridging and disc bulging. Mild central and LEFT foraminal stenosis. C4-C5: Mild osteophytic ridging and disc bulging. Moderate RIGHT and mild LEFT foraminal stenosis and mild central stenosis. C5-C6: Diffuse annular disc bulging with osteophytic ridging and facet disease. Mild central with mil d RIGHT and moderate to severe LEFT foraminal stenosis. C6-C7: Mild annular disc bulging with a central disc protrusion and osteophytic ridging. Mild central and foraminal stenosis. C7-T1: Normal. Postcontrast images are negative for enhancement. There is no discitis or osteomyelitis. No demyelina ting lesions. No mass. IMPRESSION: 1. No discitis, osteomyelitis or mass. 2. Multifocal areas of central or foraminal stenosis due to disc and osteophyte complexes. 3. C5-6: Moderate to severe LEFT foraminal stenosis. Mild central and RIGHT foraminal stenosis. 4. C4-5: Moderate RIGHT foraminal stenosis with mild LEFT and mild central stenosis. 5. C3-4: Mild central and LEFT foraminal stenosis. 6. C6-7: Mild central and bilateral foraminal stenosis.
--- NOTE | 2023-08-05 13:45 | MR_ITS ---
WS: [id number] MRI THORACIC SPINE with and without contrast HISTORY: G95.9 - Disease of spinal cord, unspecified COMPARISON: None available. TECHNIQUE: Multiplanar sequences are performed in sagittal and axial planes. Postcontrast imaging 13 mL IV. Very slight increase in thoracic kyphosis. There is no marrow edema. No fracture. Mild disc space emma rowing and desiccation throughout the thoracic spine. T1-2: Normal. T2-3: Normal. T3-4: Normal. T4-5: Shallow central disc protrusion. T5-6: Normal. T6-7: Normal. T7-8: Normal. T8-9: Mild bilateral facet arthritis. T9-10: Shallow central to LEFT paracentral disc protrusion. Facet joint arthritis. No stenosis. T10-11: Bilateral facet joint arthritis encroaching into the thecal sac. Mild foraminal narrowing. T11-12: Normal. Postcontrast images are negative. There is significant motion artifact on the axial sequence. IMPRESSION: 1. No cord syrinx or mass. 2. Very mild thoracic spondylosis as described above. No high-grade stenosis. 3. Shallow central to LEFT paracentral disc protrusion at T9-10.
== END 2023-08-05 12:33 | disposition home or self-care (01) ==
LOC: RAD 12:32
PROVIDERS: PCP Internal Medicine; Visit Provider Psychiatry & Neurology Neurology
DX: G95.9 Disease of spinal cord, unspecified (principal); M47.814 Spondylosis without myelopathy or radiculopathy, thoracic region; M51.24 Other intervertebral disc displacement, thoracic region; M48.02 Spinal stenosis, cervical region
CPT/HCPCS: 72156; 72157

== ENCOUNTER 2023-08-27 10:49 | Outpatient (CLI) | payer MEDICARE, SELFPAY ==
--- NOTE | 2023-08-27 11:00 | MR_ITS ---
WS: [id number] MRI LUMBAR SPINE WITH CONTRAST TECHNIQUE: Sagittal T1, T2 and STIR imaging. Axial T1 and T2 imaging. Post gadolinium imaging was obt ained. CLINICAL INFORMATION: G95.9 - Disease of spinal cord, unspecified COMPARISON: None. FINDINGS: Mild lumbar curve. No acute compression. Slight anterolisthesis L4 on L5. 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 No abnormal gadolinium enhancement. L1-L2: No significant disc bulging. Mild facet arthropathy. Spinal canal and foramen are patent. L2-L3: Mild annular bulging. Mild facet arthropathy. Spinal canal and foramen are patent. L3-L4: Mild annular bulging with slight effacement of the ventral thecal sac. Mild narrowing LEFT sub articular recess. Small LEFT proximal foraminal protrusion with mild LEFT foraminal narrowing. RIGHT foramen is patent. Mild facet arthropathy. L4-L5: Grade 1 anterolisthesis. Mild disc bulging with slight effacement of the ventral thecal sac. S light encroachment on traversing L5 nerve roots. Moderate facet arthropathy. Mild LEFT greater than R IGHT foraminal narrowing. L5-S1: Minimal annular bulging. Spinal canal and foramen are patent. Mild facet arthropathy. Peripelvic renal cysts. Visualized pelvic bony structures: Normal. Paravertebral soft tissues: Normal. IMPRESSION: 1. Mild lumbar curve. No acute compression. Slight anterolisthesis L4 on L5. 2. No high-grade central canal stenosis. 3. No abnormal gadolinium enhancement. 4. Mild annular bulging L3-4 slightly impinges the traversing LEFT L4 nerve root in the subarticula r recess. Mild LEFT foraminal narrowing. 5. Mild annular bulge L4-5 with slight narrowing of the subarticular recess bilaterally. Mild LEFT f oraminal narrowing. 6. Moderate facet arthropathy worse at L4-5. 7. No other acute findings.
[2023-08-27] MEDS: gadobenate dimeglumine 20 mL vial IV (11:36)
== END 2023-08-27 10:50 | disposition home or self-care (01) ==
LOC: RAD 10:49
PROVIDERS: PCP Internal Medicine; Visit Provider Psychiatry & Neurology Neurology
DX: G95.9 Disease of spinal cord, unspecified (principal); M51.36 Other intervertebral disc degeneration, lumbar region; M48.061 Spinal stenosis, lumbar region without neurogenic claudication; M47.816 Spondylosis without myelopathy or radiculopathy, lumbar region
CPT/HCPCS: 72158; A9577

== ENCOUNTER → 2023-09-01 12:46 | Outpatient (BNVA) | payer MEDICARE, SELFPAY | PROVIDERS: PCP Internal Medicine; Visit Provider Psychiatry & Neurology Neurology | DX: R29.2 Abnormal reflex (principal); M48.00 Spinal stenosis, site unspecified; G95.9 Disease of spinal cord, unspecified; R53.1 Weakness; R68.89 Other general symptoms and signs; G62.9 Polyneuropathy, unspecified; M25.552 Pain in left hip | CPT/HCPCS: 36415; 82525; 82607; 82746; 83921; 84155; 84165; 86334; 86592; 86617; 86780; 99212 ==

== ENCOUNTER → 2023-09-08 08:03 | Outpatient (BNVA) | payer MEDICARE, SELFPAY | PROVIDERS: PCP Internal Medicine; Referring Provider Psychiatry & Neurology Neurology; Visit Provider Orthopaedic Surgery | DX: M47.12 Other spondylosis with myelopathy, cervical region; M48.02 Spinal stenosis, cervical region | CPT/HCPCS: 72040; 72050; 72110; 99204 ==

== ENCOUNTER → 2023-09-10 09:44 | Outpatient (BNVA) | payer MEDICARE, SELFPAY | PROVIDERS: PCP Internal Medicine; Visit Provider Psychiatry & Neurology Neurology | DX: R20.0 Anesthesia of skin (principal); R20.2 Paresthesia of skin; G62.89 Other specified polyneuropathies | CPT/HCPCS: 95913 ==

== ENCOUNTER 2023-12-10 11:17 | Emergency (ER) | payer MEDICARE, SELFPAY ==
[2023-12-10 11:50] VITALS: BP 119/79; PULSE 99; RESP 16; TEMP 36.4; O2SAT 99
--- NOTE | 2023-12-10 12:09 | XR_ITS ---
WS: [email or web address] Exam: XR hip LT 2-3V wo/w pel* [id number] Date/Time of Exam: 12/10/2023 2:21 PM Reason For Exam: injury No fracture or dislocation. The joint compartment is preserved. Normal soft tissues. The pelvis is in tact. Unremarkable RIGHT hip. IMPRESSION: 1. Negative LEFT hip.
--- NOTE | 2023-12-10 12:09 | XR_ITS ---
WS: [email or web address] Exam: XR ankle LT min 3V* [id number] Date/Time of Exam: 12/10/2023 2:21 PM Reason For Exam: injury Findings: Multiple views of the ankle reveal no fracture or displacements of bone. No soft tissue swelling is present. There are no periosteal reactions noted. The talus and calcaneus are in adequate position. The joint space is smooth and equidistant. IMPRESSION: Negative LEFT ankle.
--- NOTE | 2023-12-10 12:09 | XR_ITS ---
WS: [email or web address] Exam: XR knee LT 3V* [id number] Date/Time of Exam: 12/10/2023 2:21 PM Reason For Exam: injury No fracture or dislocation noted. Articular relationships are intact. No joint effusion. Impression: Normal LEFT knee Kellgren-Naresh Classification: 0
--- NOTE | 2023-12-10 14:08 | ED_ITS ---
HPI - Extremity Problem General: Chief complaint: Extremity Injury, Lower Stated complaint: Fall: ankle, knee, hip pain Time Seen by Provider: 12/10/23 14:04 Source: patient Mode of arrival: ambulatory Limitations: no limitations History of Present Illness: 68-year-old female who states that she b ent over to pick something up and then fell earlier today states she fell on her left side and has pain in her left ankle left knee and left hip. She had neck surgery 6 weeks ago where she had a fusion she denies any her head denies any neck pain she denies any low back pain. States her pain is currently 3 out of 10 Associated symptoms: Deny chest pain or fever(s) Review of Systems Const: Denies: fever(s), chills, body aches or change in appetite ENMT: Denies: throat pain or dental pain Card: Denies: chest pain Resp: Denies: dyspnea GI: Denies: abdominal pain, nausea, vomiting or diarrhea Musc: Reports: extremity pain; Denies: neck pain or back pain Neuro: Denies: headache(s) PFSH ED PFSH: Medical History Macular degeneration Well woman exam with routine gynecological exam Metabolic syndrome GERD (gastroesophageal reflux disease) Essential (primary) hypertension IBS (irritable bowel syndrome) History of sigmoidoscopy 2008 Surgical History History of tubal ligation History of endometrial ablation History of esophagogastroduodenoscopy (EGD) 06/08/2017 History of colonoscopy 12/13/2014 Family History Son Thyroid disease Family/Other Breast cancer maternal aunt and paternal aunt both in 70's Grandfather Diabetes maternal Grandmother Diabetes maternal and paternal Heart disease paternal Father Heart disease Hypertension Denies family history of Hyperlipidemia Anesthesia complication Stroke Social History Smoking and tobacco/nicotine status: never used tobacco/nicotine Quit status (tobacco/nicotine): has quit using Year quit tobacco: 1986 Alcohol intake: current Alcohol intake frequency: holidays/special occasions only Alcohol type: wine Substance/Drug Use: never Physical Exam Const: COMMON NORMALS: no acute distress, patient oriented x3 and healthy appearing HENMT: COMMON NORMALS: normocephalic and atraumatic HEAD & SCALP: normocephalic and atraumatic Neck/C-Spine: COMMON NORMALS: full ROM and supple Chest: COMMONS NORMALS: normal inspection of the chest Resp: COMMON NORMALS: normal respiratory effort Extremity: COMMON NORMALS: full ROM NARRATIVE EXTREMITY EXAM: No tenderness noted to left leg or deformity Neuro: COMMON NORMALS: patient oriented x3, moves all extremities and no focal motor deficits Psych: COMMON NORMALS: mental status grossly normal, Normal thought process present and cooperative THOUGHT PROCESS: Normal thought process present Skin: COMMON NORMALS: no rashes or lesions noted and no wounds GENERAL SKIN EXAM: no rashes or lesions noted Course Vital Signs: Vital signs: Vital Signs Temperature 97.5 F L 12/10/23 11:50 Pulse Rate 86 12/10/23 14:21 Respiratory Rate 16 12/10/23 14:21 Blood Pressure 132/72 12/10/23 14:21 Pulse Oximetry 100 12/10/23 14:21 Oxygen Delivery Me thod Room Air 12/10/23 14:21 MDM - Extremity (Nontraumatic) Medical Decision Making Patient presents here with left leg pain after a fall and her exam here is benign imaging is all normal she is well-appearing here she stable for discharge she is follow-up with PCP return if worsening Medical Records I reviewed the patient's medical records. All radiology interpretation(s) finalized by discharge Discharge Plan Discharge Patient Disposition: Home Clinical Impression: Fall, Leg pain, left Condition: Stable Prescriptions: No Action loratadine [Claritin] 10 mg tablet 10 mg PO DAILY PRN dicyclomine 20 mg tablet 20 mg PO TID PRN cholecalciferol (vitamin D3) 25 mcg (1,000 unit) capsule 25 mcg PO DAILY fluticasone propionate 50 mcg/actuation spray,suspension See Rx Instructions .ROUTE .COMPLEX PRN Dose Instruction: USE 2 SPRAYS IN EACH NOSTRIL ONCE DAILY Rx Instructions: USE 2 SPRAYS IN EACH NOSTRIL ONCE DAILY PRN; ipratropium bromide 42 mcg (0.06 %) spray,non-aerosol 2 spray intranasal TID PRN Rx Instructions: administer into each nostril pseudoephedrine HCl 30 mg tablet 30 mg PO Q6H PRN aloe vera Capsule PO DAILY biotin 1 mg capsule 1 mg PO DAILY areds persivison capsule PO eletriptan [Relpax] 20 mg tablet 20 mg PO Q2H PRN (Reason: migraine headache) Qty: 9 1RF Rx Instructions: do not exceed 4 doses per 24 hrs losartan 50 mg tablet 50 mg PO QDAY Qty: 90 6RF duloxetine 60 mg capsule,delayed release(DR/EC) 60 mg PO DAILY Dexilant 60 mg capsule,biphase delayed releas 60 mg PO DAILY Qty: 90 3RF montelukast [Singulair] 10 mg tablet 10 mg PO DAILY Qty: 90 3RF albuterol sulfate 90 mcg/actuation HFA aerosol inhaler 2 puff inhalation QID PRN (Reason: shortness of breath or wheezing) Qty: 8.5 0RF Amitiza 8 mcg capsule 8 mcg PO BID Qty: 180 3RF celecoxib [Celebrex] 200 mg capsule 200 mg PO BID PRN (Reason: pain) Qty: 60 3RF estradiol 0.5 mg tablet See Rx Instructions .ROUTE .COMPLEX Qty: 90 3RF Dose Instruction: Take 1 tablet by mouth once daily Rx Instructions: Take 1 tablet by mouth once daily ketoconazole 2 % shampoo 1 applic topical .2x weekly Qty: 120 6RF Rx Instructions: Lather into scalp 2-3 times weekly. Allow to sit on scalp for 5 minutes before rinsing. triamcinolone acetonide 0.1 % ointment 1 applic topical BID Qty: 80 0RF Rx Instructions: Apply to affected area no more than 2 weeks per month. Not for face acyclovir 400 mg tablet 400 mg PO TID PRN (Reason: Genital Herpes) 10 Days Qty: 30 2RF medroxyprogesterone 2.5 mg tablet See Rx Instructions .ROUTE .COMPLEX Qty: 90 1RF Dose Instruction: Take 1 tablet by mouth once daily Rx Instructions: Take 1 tablet by mouth once daily hydrocodone-acetaminophen 5-325 mg tablet 1 tab PO Q8H PRN (Reason: pain (scale score 7-10)) Qty: 6 0RF Discharge Orders: Discharge ED (Routine); Ordered 12/10/23 Ordered By: Yamel Rodriguez Referrals: Robbie Roberts MD [Primary Care Provider] - 1-3 days Discharge Diet: Advance as tolerated Discharge Activity: Resume usual activity Patient Instructions: Fall Prevention (ED), Leg Pain (ED) Coding Level of Care Code ED Converter Supervisor for Licha Saldana
[2023-12-10 14:21] VITALS: BP 132/72; PULSE 86; RESP 16; O2SAT 100
[2023-12-10 15:13] VITALS: BP 121/80; PULSE 110; O2SAT 97
== END 2023-12-10 15:16 | disposition home or self-care (01) ==
PROVIDERS: Emergency Provider Emergency Medicine; PCP Internal Medicine
DX: M79.605 Pain in left leg (principal); H35.30 Unspecified macular degeneration; I10 Essential (primary) hypertension; W18.39XA Other fall on same level, initial encounter
CPT/HCPCS: 73502; 73562; 73610; 99284

== ENCOUNTER 2024-03-03 16:28 | Outpatient (CLI) | payer MEDICARE, SELFPAY ==
[2024-03-03 17:30] LABS: Magnesium 1.9 mg/dL (1.7-2.3)
[2024-03-07 12:14] LABS: Copper Level 109 mcg/dL (70-175)
== END 2024-03-03 16:29 | disposition home or self-care (01) ==
LOC: LAB 16:31
PROVIDERS: PCP Internal Medicine; Visit Provider Internal Medicine
DX: G82.50 Quadriplegia, unspecified (principal)
CPT/HCPCS: 82525; 83735

== ENCOUNTER 2024-05-11 16:15 | Outpatient (CLI) | payer MEDICARE, SELFPAY ==
--- NOTE | 2024-05-11 16:22 | XR_ITS ---
WS: [id number] Left hip, 2 views, AP pelvis, 05/11/2024 Clinical Data: LEFT HIP CREPITUS, LEFT HIP W PELVIS Comparison: Pelvis and left hip, 12/10/2023 Findings: No fractures or dislocations are seen. The right hip joint is intact. The right hip shows no erosion, sclerosis, narrowing or fragmentation of the right femoral head. The left hip is normal. The soft ti ssues are not remarkable. The adjacent pelvis is normal. XR/XR hip LT 2-3V wo/w pel* [id number] Impression: Negative pelvis and right hip. Tonnis classification: grade 0: normal radiographs
== END 2024-05-11 16:16 | disposition home or self-care (01) ==
LOC: RAD 16:19
PROVIDERS: PCP Internal Medicine
DX: M25.852 Other specified joint disorders, left hip (principal)
CPT/HCPCS: 73502

== ENCOUNTER → 2024-06-23 13:34 | Outpatient (BNVA) | payer MEDICARE, SELFPAY | PROVIDERS: PCP Internal Medicine; Visit Provider Nurse Practitioner Family | DX: L57.0 Actinic keratosis (principal); L21.8 Other seborrheic dermatitis; L81.4 Other melanin hyperpigmentation; L57.8 Other skin changes due to chronic exposure to nonionizing radiation; D22.5 Melanocytic nevi of trunk | CPT/HCPCS: 17000; 99214 ==

== ENCOUNTER 2024-07-18 13:27 | Outpatient (CLI) | payer MEDICARE, SELFPAY ==
[2024-07-22 19:05] LABS: Copper Level 96 mcg/dL (70-175)
== END 2024-07-18 13:28 | disposition home or self-care (01) ==
LOC: LAB 13:29
PROVIDERS: PCP Internal Medicine; Visit Provider Psychiatry & Neurology Neurology
DX: G95.9 Disease of spinal cord, unspecified (principal); Z78.9 Other specified health status
CPT/HCPCS: 36415; 82525

== ENCOUNTER 2024-08-10 13:16 | Outpatient (CLI) | payer MEDICARE, SELFPAY ==
--- NOTE | 2024-08-10 13:30 | MM_ITS ---
WS: [id number] BILATERAL 3D TOMOSYNTHESIS DIGITAL SCREENING MAMMOGRAPHY WITH CAD CLINICAL INFORMATION: Z12.39 - Encounter for other screening for malignant neop... HISTORY: Screening mammogram. No current complaints. COMPARISON: 2022 TECHNIQUE: Bilateral CC and MLO views. FINDINGS: The breasts are composed of heterogeneous fibroglandular density tissue, which can limit the detectio n of small underlying mass lesions. The slightly spiculated asymmetric density posterior depth LEFT b reast progressed compared to previous. Recommend further evaluation with LEFT breast diagnostic mammo graphy and ultrasound. This is near the 12 o'clock position depth. RIGHT breast is unremarkable. MM/MM [facility] tomosynthesis [id number] IMPRESSION: DENSITY: The breasts are heterogeneously dense, which may obscure small masses. BI-RADS: 0 - Incomplete: Need additional imaging evaluation FOLLOW UP: Need Additional Imaging Recommend LEFT breast diagnostic mammography and ultrasound in further evaluati on
== END 2024-08-10 13:17 | disposition home or self-care (01) ==
PROVIDERS: PCP Internal Medicine; Visit Provider Obstetrics & Gynecology
DX: Z12.31 Encounter for screening mammogram for malignant neoplasm of breast (principal); R92.333 Mammographic heterogeneous density, bilateral breasts; N63.42 Unspecified lump in left breast, subareolar
CPT/HCPCS: 77063; 77067

== ENCOUNTER 2024-10-06 14:13 | Outpatient (CLI) | payer MEDICARE, SELFPAY ==
--- NOTE | 2024-10-06 14:18 | MM_ITS ---
WS: [id number] LEFT 3D TOMOSYNTHESIS DIGITAL MAMMOGRAPHY WITH CAD CLINICAL INFORMATION: R92.8 - Other abnormal and inconclusive findings on diagn... HISTORY: Additional views COMPARISON: 08/10/2024 TECHNIQUE: 3 views of the left breast were obtained. FINDINGS: The left breast is composed of heterogeneous fibroglandular density tissue, which can limit the detection of small underlying mass lesions. Again seen is the dense parenchymal tissue 12:00 LEFT breast similar to previous. This is less conspicuous today on the spot compression views and partially compresses out. ULTRASOUND BREAST LEFT TECHNIQUE: Ultrasound left breast focused area of concern. CLINICAL INFORMATION: R92.8 - Other abnormal and inconclusive findings on diagn... FINDINGS: Ultrasound LEFT breast 11 to 1 o'clock position. Dense underlying parenchymal tissue. No cystic or solid lesions. No suspicious lesions to target for biopsy. Findings are benign. MM/MM diag LT tomosynthesis [id number] IMPRESSION: DENSITY: The breasts are heterogeneously dense, which may obscure small masses. BI-RADS: 2 - Benign FOLLOW UP: 1 Year Follow-up Recommend return to annual screening mammography.
== END 2024-10-06 14:14 | disposition home or self-care (01) ==
LOC: RAD 14:15
PROVIDERS: PCP Internal Medicine; Visit Provider Obstetrics & Gynecology
DX: R92.8 Other abnormal and inconclusive findings on diagnostic imaging of breast (principal); R92.322 Mammographic fibroglandular density, left breast; R92.332 Mammographic heterogeneous density, left breast; N63.25 Unspecified lump in the left breast, overlapping quadrants
CPT/HCPCS: 76642; 77061; G0279

== ENCOUNTER 2024-10-17 08:53 | Outpatient (CLI) | payer MEDICARE, SELFPAY | END 2024-10-17 08:54 | disposition home or self-care (01) | LOC: LAB 09:00 | PROVIDERS: PCP Internal Medicine; Visit Provider Psychiatry & Neurology Neurology | DX: G95.9 Disease of spinal cord, unspecified (principal) | CPT/HCPCS: 36415; 82525 ==

== ENCOUNTER 2024-11-05 22:47 | Emergency (ER) | payer MEDICARE, SELFPAY ==
[2024-11-05 23:09] VITALS: BP 150/79; PULSE 103; RESP 16; TEMP 36.6; O2SAT 96; BMI 26.6
[2024-11-05 23:52] LABS: Basophils % 0.7 %; Eosinophils # 0.1 10^3/uL (0.0-0.8); Eosinophils % 2.4 %; Hematocrit 45.2 % (36-47); Lymphocytes # 2.1 10^3/uL (0.8-4.8); Lymphocytes % 48.7 %; Mean Corpuscular HGB Conc 32.5 g/dL (30-55); Mean Corpuscular Hemoglobin 28.8 pg (27-33); Mean Corpuscular Volume 88.5 fl (85-98); Mean Platelet Volume 10.8 fL (7.4-10.4); Monocytes # 0.5 10^3/uL (0.2-0.9); Monocytes % 12.7 %; Neutrophils # 1.51 10^3/uL (1.8-7.7); Neutrophils % 35.5 %; Nucleated Red Blood Cells % 0 %; Platelet Count 172 10^3/cmm (157-399); Red Blood Count 5.11 10^6/uL (3.85-5.65); Red Cell Distribution Width 12.4 % (12.1-15.1); White Blood Count 4.25 10^3/uL (3.29-11.43)
[2024-11-06 00:13] LABS: Blood Urea Nitrogen 10 mg/dL (8-23); Calcium 9.1 mg/dL (8.5-10.5); Carbon Dioxide 21 mmol/L (22-29); Chloride 104 mmol/L (98-107); Creatinine Clr Calc Pharmacy 73.0428; Glomerular Filtration Rate 71.5 mL/min (90-130); Glucose 107 mg/dL (65-115); Lipase 79 U/L (13-60); Osmolality Calculated 286 mOsm/kg (285-295); Sodium 138 mmol/L (136-145)
[2024-11-06 00:14] LABS: Anion Gap 17.6 (5-19); Potassium 4.6 mmol/L (3.5-5.1)
--- NOTE | 2024-11-06 02:05 | W.ED.ABDPA2 ---
HPI - Abdominal Pain General: Chief Complaint: Abdominal Pain Stated Complaint: Sharp pain left abd Time Seen by Provider: 11/06/24 02:01 History of Present Illness: Patient presents with sharp pain in the left lower quadrant of the abdomen that has now become a dull pain. Patient reports maintaining constant pressure on the area for relief. Patient has a history of irritable bowel syndrome but states this pain is different from typical IBS symptoms. Patient notes that usually with IBS episodes, bowel movements provide relief, which is not the case in this instance. Patient reports increased bowel movement frequency, slightly above their baseline, with softer consistency. Denies misael blood in stool. Reports notable change in stool odor over the past two weeks. Patient discloses being partially paralyzed. Recent medical history significant for upper respiratory infection treated with multiple courses of antibiotics since July, including two rounds of Augmentin and current treatment with cephalexin for past 2 days. Last colonoscopy was approximately 10 years ago, with history of colitis in sigmoid colon documented in , which required hospitalization for 4 days following 19 days of diarrhea. Related Data Home Medications ?Medication ?Instructions ?Recorded ?Confirmed cholecalciferol (vitamin D3) 25 25 mcg PO DAILY 04/16/20 07/29/24 mcg (1,000 unit) capsule loratadine 10 mg tablet (Claritin) 10 mg PO DAILY PRN 04/16/20 07/29/24 biotin 1 mg capsule 1 mg PO DAILY 03/10/22 07/29/24 fluticasone propionate 50 See Rx Instructions .Route 03/10/22 07/29/24 mcg/actuation nasal .COMPLEX PRN spray,suspension ipratropium bromide 42 mcg (0.06 2 spray intranasal TID PRN 03/10/22 07/29/24 %) nasal spray pseudoephedrine HCl 30 mg tablet 30 mg PO Q6H PRN 03/10/22 07/29/24 areds persivison PO 06/17/22 07/29/24 duloxetine 60 mg capsule,delayed 60 mg PO DAILY 10/30/22 07/29/24 release tizanidine 2 mg capsule 2 mg PO TID PRN 07/29/24 07/29/24 Previous Rx's ?Medication ?Instructions ?Recorded dexlansoprazole 60 mg 60 mg PO DAILY #90 caps 12/13/20 capsule,biphase delayed release (Dexilant) montelukast 10 mg tablet 10 mg PO DAILY #90 tabs 01/28/21 (Singulair) albuterol sulfate 90 mcg/actuation 2 puff inhalation QID PRN 10/31/21 aerosol inhaler shortness of breath or wheezing #8.5 grams lubiprostone 8 mcg capsule 8 mcg PO BID #180 caps 11/27/21 (Amitiza) celecoxib 200 mg capsule (Celebrex) 200 mg PO BID PRN pain #60 caps 06/11/22 eletriptan 20 mg tablet (Relpax) 20 mg PO Q2H PRN migraine headache 06/25/22 #9 tabs losartan 50 mg tablet 50 mg PO QDAY #90 tabs 06/25/22 ketoconazole 2 % shampoo 1 applic topical .2x weekly #120 mL 11/03/22 triamcinolone acetonide 0.1 % 1 applic topical BID #80 grams 11/03/22 topical ointment acyclovir 400 mg tablet 400 mg PO TID PRN Genital Herpes 12/30/22 10 days #30 tabs hydrocodone 5 mg-acetaminophen 325 1 tab PO Q8H PRN pain (scale score 02/12/23 mg tablet 7-10) #6 tabs estradiol 0.5 mg tablet See Rx Instructions .Route 02/19/24 .COMPLEX #90 tabs oxybutynin chloride 5 mg 5 mg PO DAILY #30 tabs 07/29/24 tablet,extended release 24 hr medroxyprogesterone 2.5 mg tablet See Rx Instructions .Route 08/22/24 .COMPLEX #90 tabs Allergies Allergy/AdvReac Type Severity Reaction Status Date / Time azithromycin (From Zithromax) Allergy Severe difficulty Verified 11/05/24 23:14 breathing lidocaine Allergy Intermediate headaches Verified 11/05/24 23:14 cephalexin Allergy ALGY-Hives Verified 11/05/24 23:14 clarithromycin Allergy ALGY-Hives Verified 11/05/24 23:14 clindamycin Allergy ALGY-Hives Verified 11/05/24 23:14 mold Allergy unknown Verified 11/05/24 23:14 tetracycline AdvReac Unknown Verified 11/05/24 23:14 PFSH ED PFSH: Medical History Macular degeneration Well woman exam with routine gynecological exam Metabolic syndrome GERD (gastroesophageal reflux disease) Essential (primary) hypertension IBS (irritable bowel syndrome) History of sigmoidoscopy 2008 Surgical History History of tubal ligation History of endometrial ablation History of esophagogastroduodenoscopy (EGD) 06/08/2017 History of colonoscopy 12/13/2014 Family History Son Thyroid disease Family/Other Breast cancer maternal aunt and paternal aunt both in 70's Grandfather Diabetes maternal Grandmother Diabetes maternal and paternal Heart disease paternal Father Heart disease Hypertension Denies family history of Hyperlipidemia Anesthesia complication Stroke Social History Smoking and tobacco/nicotine status: never used tobacco/nicotine Quit status (tobacco/nicotine): has quit using Year quit tobacco: 1986 Alcohol intake: current Alcohol intake frequency: holidays/special occasions only Alcohol type: wine Substance/Drug Use: never Physical Exam Const: COMMON NORMALS: no acute distress, patient oriented x3, alert and well nourished HENMT: COMMON NORMALS: normocephalic HEAD & SCALP: normocephalic Eye: COMMON NORMALS: Equal, round and reactive pupils present, EOMs intact bilaterally and conjunctivae normal CONJUNCTIVA: Yes conjunctivae normal PUPIL: Yes Equal, round and reactive pupils present Neck/C-Spine: COMMON NORMALS: full ROM, no lymphadenopathy, supple, no meningeal signs, no JVD and Thyroid normal THYROID: Thyroid normal Chest: COMMONS NORMALS: normal inspection of the chest and normal palpation of entire chest wall Resp: COMMON NORMALS: normal respiratory effort, No retractions, No use of accessory muscles, clear to auscultation bilaterally and percussion normal AUSCULTATION: clear to auscultation bilaterally PERCUSSION: percussion normal Cardio: COMMON NORMALS: no JVD GI: OTHER: Positive TTP to LLQ. No rebound or guarding. Extremity: COMMON NORMALS: normal to inspection, full ROM, capillary refill normal, no joint enlargement, no clubbing, cyanosis or edema, no calf tenderness and no pedal edema Neuro: COMMON NORMALS: patient oriented x3 SENSORIUM/ORIENTATION: Yes alert MENINGEAL SIGNS: Yes no meningeal signs Skin: COMMON NORMALS: no rashes or lesions noted, turgor normal and no jaundice GENERAL SKIN EXAM: no rashes or lesions noted and turgor normal Course Vital Signs: Vital signs: Vital Signs Temperature 97.9 F 11/05/24 23:09 Pulse Rate 65 11/06/24 04:06 Respiratory Rate 16 11/06/24 04:06 Blood Pressure 163/68 11/06/24 04:06 Pulse Oximetry 100 11/06/24 04:06 Oxygen Delivery Me thod Room Air 11/06/24 04:06 MDM - Abdominal Pain Medical Decision Making 1. Suspected Colitis - likely antibiotic-associated vs. inflammatory bowel disease exacerbation - Multiple recent courses of antibiotics raise concern for C. difficile or antibiotic-associated colitis - Plan for blood work and imaging studies to evaluate abdominal pain - Will administer IV Toradol for pain management 2. Recent Antibiotic Use - Notable recent antibiotic exposure with multiple courses since July - Monitor for complications and adverse effects 3. Chronic Medical Conditions - History of IBS and colitis - current presentation appears different from typical pattern - Due for surveillance colonoscopy next year Patient feels significantly better after intervention in the emergency department her symptoms markedly decreased. CT scan did not reveal any acute findings. She was treated and recommended to follow-up with her primary care and consider discontinuation of antibiotics. Lab Data 11/05/24 23:44 11/05/24 23:44 Labs/Radiology: Radiology Impressions Abdomen/Pelvis CT 11/06/24 02:13 IMPRESSION: No acute pathologic findings in the abdomen/pelvis. Laboratory Results WBC 4.25 10^3/uL (3.29-11.43) 11/05/24 23:44 RBC 5.11 10^6/uL (3.85-5.65) 11/05/24 23:44 Hgb 14.70 g/dL (11.27-16.99) 11/05/24 23:44 Hct 45.2 % (36-47) 11/05/24 23:44 MCV 88.5 fl (85-98) 11/05/24 23:44 MCH 28.8 pg (27-33) 11/05/24 23:44 MCHC 32.5 g/dL (30-55) 11/05/24 23:44 RDW 12.4 % (12.1-15.1) 11/05/24 23:44 Plt Count 172 10^3/cmm (157-399) 11/05/24 23:44 MPV 10.8 fL (7.4-10.4) H 11/05/24 23:44 Neut % (Auto) 35.5 % 11/05/24 23:44 Lymph % (Auto) 48.7 % 11/05/24 23:44 [place] % (Auto) 12.7 % 11/05/24 23:44 Eos % (Auto) 2.4 % 11/05/24 23:44 Baso % (Auto) 0.7 % 11/05/24 23:44 Neut # (Auto) 1.51 10^3/uL (1.8-7.7) L 11/05/24 23:44 Lymph # (Auto) 2.1 10^3/uL (0.8-4.8) 11/05/24 23:44 [place] # (Auto) 0.5 10^3/uL (0.2-0.9) 11/05/24 23:44 Eos # (Auto) 0.1 10^3/uL (0.0-0.8) 11/05/24 23:44 Baso # (Auto) 0.0 10^3/uL (0.0-0.1) 11/05/24 23:44 Nucleated RBC % (auto) 0 % 11/05/24 23:44 Nucleated RBCs # 0.0 /100WBC 11/05/24 23:44 Sodium 138 mmol/L (136-145) 11/05/24 23:44 Potassium 4.6 mmol/L (3.5-5.1) 11/05/24 23:44 Chloride 104 mmol/L (98-107) 11/05/24 23:44 Carbon Dioxide 21 mmol/L (22-29) L 11/05/24 23:44 Anion Gap 17.6 (5-19) 11/05/24 23:44 BUN 10 mg/dL (8-23) 11/05/24 23:44 Creatinine 0.8 mg/dL (0.5-0.9) 11/05/24 23:44 GFR Calculation 71.5 mL/min (90-130) L 11/05/24 23:44 Glucose 107 mg/dL (65-115) 11/05/24 23:44 Calculated Osmolality 286 mOsm/kg (285-295) 11/05/24 23:44 Calcium 9.1 mg/dL (8.5-10.5) 11/05/24 23:44 Lipase 79 U/L (13-60) H 11/05/24 23:44 Urine Color Yellow (Yellow) 11/06/24 02:56 Urine Appearance Clear (CLEAR) 11/06/24 02:56 Urine pH 7.0 (5-7) 11/06/24 02:56 Ur Specific [place] 1.014 (1.005-1.030) 11/06/24 02:56 Urine Protein Negative (Negative) 11/06/24 02:56 Urine Glucose (UA) Negative (Normal) 11/06/24 02:56 Urine Ketones Negative (Negative) 11/06/24 02:56 Urine Blood Negative (Negative) 11/06/24 02:56 Urine Nitrate Negative (Negative) 11/06/24 02:56 Urine Bilirubin Negative (Negative) 11/06/24 02:56 Urine Urobilinogen 1.0 mg/dL (Negative) 11/06/24 02:56 Ur Leukocyte Esterase Negative (Negative) 11/06/24 02:56 Urine RBC 3-5 /hpf (0-2) 11/06/24 02:56 Urine WBC 0-5 /hpf (0-5) 11/06/24 02:56 Ur Squamous Epith Cells 0-5 /hpf (0-5) 11/06/24 02:56 Amorphous Sediment Not Reportable 11/06/24 02:56 Urine Bacteria None seen /hpf (NONE) 11/06/24 02:56 Hyaline Casts 0-4 /lpf H 11/06/24 02:56 All radiology interpretation(s) finalized by discharge Discharge Plan Discharge Patient Disposition: Home Clinical Impression: Abdominal pain IBS (irritable bowel syndrome) Qualifiers: Irritable bowel syndrome type: with constipation Qualified Code(s): K58.1 - Irritable bowel syndrome with constipation Condition: Stable Prescriptions: No Action loratadine [Claritin] 10 mg tablet 10 mg PO DAILY PRN cholecalciferol (vitamin D3) 25 mcg (1,000 unit) capsule 25 mcg PO DAILY fluticasone propionate 50 mcg/actuation spray,suspension See Rx Instructions .ROUTE .COMPLEX PRN Dose Instruction: USE 2 SPRAYS IN EACH NOSTRIL ONCE DAILY Rx Instructions: USE 2 SPRAYS IN EACH NOSTRIL ONCE DAILY PRN; ipratropium bromide 42 mcg (0.06 %) spray,non-aerosol 2 spray intranasal TID PRN Rx Instructions: administer into each nostril pseudoephedrine HCl 30 mg tablet 30 mg PO Q6H PRN biotin 1 mg capsule 1 mg PO DAILY areds persivison capsule PO eletriptan [Relpax] 20 mg tablet 20 mg PO Q2H PRN (Reason: migraine headache) Qty: 9 1RF Rx Instructions: do not exceed 4 doses per 24 hrs losartan 50 mg tablet 50 mg PO QDAY Qty: 90 6RF duloxetine 60 mg capsule,delayed release(DR/EC) 60 mg PO DAILY tizanidine 2 mg capsule 2 mg PO TID PRN oxybutynin chloride 5 mg tablet extended release 24hr 5 mg PO DAILY Qty: 30 0RF Dexilant 60 mg capsule,biphase delayed releas 60 mg PO DAILY Qty: 90 3RF montelukast [Singulair] 10 mg tablet 10 mg PO DAILY Qty: 90 3RF albuterol sulfate 90 mcg/actuation HFA aerosol inhaler 2 puff inhalation QID PRN (Reason: shortness of breath or wheezing) Qty: 8.5 0RF Amitiza 8 mcg capsule 8 mcg PO BID Qty: 180 3RF celecoxib [Celebrex] 200 mg capsule 200 mg PO BID PRN (Reason: pain) Qty: 60 3RF ketoconazole 2 % shampoo 1 applic topical .2x weekly Qty: 120 6RF Rx Instructions: Lather into scalp 2-3 times weekly. Allow to sit on scalp for 5 minutes before rinsing. triamcinolone acetonide 0.1 % ointment 1 applic topical BID Qty: 80 0RF Rx Instructions: Apply to affected area no more than 2 weeks per month. Not for face acyclovir 400 mg tablet 400 mg PO TID PRN (Reason: Genital Herpes) 10 Days Qty: 30 2RF estradiol 0.5 mg tablet See Rx Instructions .ROUTE .COMPLEX Qty: 90 3RF Dose Instruction: Take 1 tablet by mouth once daily Rx Instructions: Take 1 tablet by mouth once daily medroxyprogesterone 2.5 mg tablet See Rx Instructions .ROUTE .COMPLEX Qty: 90 0RF Dose Instruction: Take 1 tablet by mouth once daily Rx Instructions: Take 1 tablet by mouth once daily hydrocodone-acetaminophen 5-325 mg tablet 1 tab PO Q8H PRN (Reason: pain (scale score 7-10)) Qty: 6 0RF Discharge Orders: Discharge ED (Routine); Ordered 11/06/24 Ordered By: Garry Elmore Referrals: Robbie Roberts MD [Primary Care Provider] - Discharge Diet: Full LIquid Discharge Activity: Limit activity as instructed Patient Instructions: Abdominal Pain (ED), Opioid Safety, Pain Management Activity Restrictions/Additional Instructions: 1. Make follow up with PCP this week. 2. Return for new or worsening symptoms. 3. Consider stopping antibiotics Print Language: Indonesian Coding Level of Care Code ED [employer] Manager for Licha Saldana
--- NOTE | 2024-11-06 02:13 | CTR_ITS ---
PROCEDURE INFORMATION: Exam: CT Abdomen And Pelvis With Contrast Exam date and time: 11/06/2024 3:10 AM Age: 69 years old Clinical indication: Abdominal pain; Localized; Left lower quadrant (llq); C/O llq pain. History of diverticulitis. ; Additional info: Llq pain / ? ? diverticulitis TECHNIQUE: Imaging protocol: Computed tomography of the abdomen and pelvis with contrast. Radiation optimization: All CT scans at this facility use at least one of these dose optimization techniques: automated exposure control; mA and/or kV adjustment per patient size (includes targeted exams where dose is matched to clinical indication); or iterative reconstruction. Contrast material: OMNI 350; Contrast volume: 100 ml; Contrast route: INTRAVENOUS (IV); COMPARISON: CT abdomen pelvis w con* [id number] 10/07/2019 6:12 PM RADIATION DOSE METRICS: Total DLP (mGy-cm): 646.09 FINDINGS: Lungs: Visualized lung bases are clear. Liver: The liver is unremarkable. Gallbladder and biliary ducts: The gallbladder is unremarkable. No biliary ductal dilatation. Pancreas: The pancreas is unremarkable. Spleen: The spleen is unremarkable. Adrenal glands: The adrenal glands are unremarkable. Kidneys and ureters: Kidneys are normal. No hydronephrosis or nephrolithiasis. Stomach and bowel: No evidence of bowel obstruction. Appendix: The appendix is normal. Intraperitoneal space: No extraluminal free air. No significant free fluid in the abdomen or pelvis. Vasculature: Minimal scattered calcific atheromatous disease of the abdominal aorta and its major branches. No abdominal aortic aneurysm. Lymph nodes: No distinct pathologically enlarged lymphadenopathy. Urinary bladder: Urinary bladder is within normal limits. Reproductive: Visualized reproductive structures are within normal limits. Bones/joints: Benign-appearing lucent lesion in the vertebral body of L2, measuring up to 1.6 cm, appears minimally changed compared to 10/07/2019. No acute osseous findings. Soft tissues: Visualized superficial soft tissues are within normal limits. CT/CT abdomen pelvis w con* [id number] IMPRESSION: No acute pathologic findings in the abdomen/pelvis.
[2024-11-06] MEDS: ketorolac 30 mg/mL INJ 15 MG IVP (02:47)
[2024-11-06 02:50] VITALS: BP 133/85; PULSE 93; RESP 16; O2SAT 96
[2024-11-06 03:03] LABS: Bilirubin Urine Negative (Negative); Blood Urine Negative (Negative); Glucose Urine UA Negative (Normal); Ketones Urine Negative (Negative); Leukocyte Esterase Urine Negative (Negative); Nitrate Urine Negative (Negative); Protein Urine Negative (Negative); Specific Gravity, Urine 1.014 (1.005-1.030); Urine Appearance Clear (CLEAR); Urine Color Yellow (Yellow)
[2024-11-06 03:08] LABS: Add Urine Microscopic? YES; Bacteria Urine None Seen /hpf; Hyaline Casts Urine 0-4 /lpf; Squamous Epithelial Cell Urine 0-5 /hpf (0-5); WBC Urine 0-5 /hpf (0-5)
[2024-11-06] MEDS: iohexol 350 mg/mL 500 mL Btl (per mL) IV (03:13)
[2024-11-06 03:43] VITALS: BP 112/76; PULSE 96; RESP 16; O2SAT 98
[2024-11-06 04:06] VITALS: BP 163/68; PULSE 65; RESP 16; O2SAT 100
[2024-11-06 05:28] VITALS: BP 131/87; PULSE 95; RESP 16; O2SAT 96
== END 2024-11-06 05:03 | disposition home or self-care (01) ==
PROVIDERS: Emergency Provider Family Medicine; PCP Internal Medicine
DX: K58.1 Irritable bowel syndrome with constipation (principal); Z87.891 Personal history of nicotine dependence
CPT/HCPCS: 36415; 74177; 80048; 81001; 83690; 85025; 96374; 99285; J1885

== ENCOUNTER 2024-12-06 11:26 | Outpatient (CLI) | payer MEDICARE, SELFPAY ==
--- NOTE | 2024-12-06 12:16 | XRR_ITS ---
PROCEDURE INFORMATION: Exam: XR Chest Exam date and time: 12/06/2024 12:34 PM Age: 69 years old Clinical indication: Prior surgery; Surgery date: 6+ months; Surgery type: C spine; X6 weeks coughing with phlegm; Laryngitis; Additional info: Chronic sinusitis. No history of recent trauma or surgery is provided. TECHNIQUE: Imaging protocol: Radiologic exam of the chest. 2image(s) are provided. Views: 2 views. COMPARISON: CR XR chest 2V* [id number] 06/03/2023 11:43 AM. Lung base report of 11/06/2024. Chest report 08/06/2017. FINDINGS: Lungs: No lobar consolidation is appreciated.There is some subsegmental atelectasis versus post inflammatory reticulonodular scarring demonstrated. There does however appear to be some nodularity although could also represent overlying external, button type artifact for example about the left mid lung zone. There also appears to be overlying artifact of the chest wall, upper abdomen. There appears to be some slight central peribronchial thickening. Pleural spaces: No pneumothorax or significant pleural effusion is appreciated. Heart/Mediastinum: The cardiomediastinal silhouette is within normal for size. No cardiac decompensation is appreciated. Diaphragm: There is slight asymmetric right hemidiaphragm elevation. Bones/joints: There are some degenerative changes of the shoulders and spine overall present. No interval displaced fracture or dislocation is appreciated. Soft tissues: No radiopaque foreign body or subcutaneous emphysema is appreciated. There are some surgical appearing changes of the lower cervical spine. Other findings: No other significant interval changes are appreciated. XR/XR chest 2V* [id number] IMPRESSION: 1. There appears to be some central peribronchial thickening and could be seen with processes including reactive changes as well as early peribronchial inflammation with no lobar consolidation appreciated. 2. In the interval, there does appear to be some ground-glass nodularity although could also represent overlying, external type artifact. Overall, consider noncontrasted CT chest for further evaluation.
== END 2024-12-06 11:27 | disposition home or self-care (01) ==
PROVIDERS: PCP Internal Medicine; Visit Provider Specialist
DX: J32.8 Other chronic sinusitis (principal); R05.8 Other specified cough
CPT/HCPCS: 71046; 94010

== ENCOUNTER 2025-01-17 13:34 | Outpatient (CLI) | payer MEDICARE, SELFPAY | END 2025-01-17 13:35 | disposition home or self-care (01) | LOC: LAB 13:40 | PROVIDERS: PCP Internal Medicine; Visit Provider Internal Medicine | DX: R79.0 Abnormal level of blood mineral (principal) | CPT/HCPCS: 36415; 82525 ==

== ENCOUNTER 2025-03-31 15:11 | Outpatient (CLI) | payer MEDICARE, SELFPAY ==
--- NOTE | 2025-03-31 15:19 | XRR_ITS ---
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 Views: 2 or 3 views hip with pelvis when performed. COMPARISON: CT abdomen pelvis w con* [id number] 11/06/2024 3:10 AM FINDINGS: Bones/joints: Unremarkable. No acute fracture. Soft tissues: Unremarkable. XR/XR hip LT 2-3V wo/w pel* [id number] IMPRESSION: No acute findings.
== END 2025-03-31 15:12 | disposition home or self-care (01) ==
LOC: RAD 15:14
PROVIDERS: PCP Internal Medicine; Visit Provider Psychiatry & Neurology Neurology
DX: S72.002A Fracture of unspecified part of neck of left femur, initial encounter for closed fracture (principal); W19.XXXA Unspecified fall, initial encounter
CPT/HCPCS: 73502

== ENCOUNTER 2025-05-18 15:48 | Outpatient (CLI) | payer MEDICARE, SELFPAY ==
[2025-05-18 16:51] LABS: Hematocrit 41.0 % (36-47); Hemoglobin 13.30 g/dL (11.27-16.99); Mean Corpuscular HGB Conc 32.4 g/dL (30-55); Mean Corpuscular Hemoglobin 28.5 pg (27-33); Mean Corpuscular Volume 87.8 fl (85-98); Nucleated Red Blood Cells % 0 %; Platelet Count 282 10^3/cmm (157-399); Red Blood Count 4.67 10^6/uL (3.85-5.65); White Blood Count 8.13 10^3/uL (3.29-11.43)
[2025-05-18 18:33] LABS: Alanine Aminotransferase 12 U/L (0-33); Albumin Level 4.2 g/dL (3.5-5.2); Alkaline Phosphatase 112 U/L (35-105); Anion Gap 17.9 (5-19); Aspartate Amino Transferase 19 U/L (0-32); Blood Urea Nitrogen 12 mg/dL (8-23); Calcium 9.0 mg/dL (8.5-10.5); Carbon Dioxide 24 mmol/L (22-29); Chloride 104 mmol/L (98-107); Globulin 2.8 g/dL (1.3-4.6); Glucose 76 mg/dL (65-115); Osmolality Calculated 293 mOsm/kg (285-295); Potassium 3.9 mmol/L (3.5-5.1); Sodium 142 mmol/L (136-145); Thyroid Stimulating Hormone 1.41 uIU/mL (0.27-4.20); Total Protein 7.0 g/dL (6.6-8.7); Vitamin B12 498 pg/mL (232-1245)
== END 2025-05-18 15:49 | disposition home or self-care (01) ==
LOC: LAB 15:49
PROVIDERS: PCP Internal Medicine; Visit Provider Internal Medicine
DX: I10 Essential (primary) hypertension (principal); R79.0 Abnormal level of blood mineral
CPT/HCPCS: 36415; 80053; 82525; 82607; 84443; 85025

== ENCOUNTER → 2025-06-15 13:09 | Outpatient (BNVA) | payer MEDICARE, SELFPAY | PROVIDERS: PCP Internal Medicine; Visit Provider Nurse Practitioner Family | DX: L21.8 Other seborrheic dermatitis (principal); L81.4 Other melanin hyperpigmentation; D18.01 Hemangioma of skin and subcutaneous tissue; L82.1 Other seborrheic keratosis; B35.1 Tinea unguium; L57.8 Other skin changes due to chronic exposure to nonionizing radiation; L81.5 Leukoderma, not elsewhere classified; X32.XXXA Exposure to sunlight, initial encounter | CPT/HCPCS: 99214 ==

== ENCOUNTER → 2025-08-22 08:35 | Outpatient (BNVA) | payer MEDICARE, SELFPAY | PROVIDERS: PCP Internal Medicine; Visit Provider Nurse Practitioner Women's Health | DX: I10 Essential (primary) hypertension (principal); Z79.890 Hormone replacement therapy | CPT/HCPCS: 80061; 82670 ==